=== PATIENT | female | born 1995 | race Caucasian/White ===

== ENCOUNTER 2019-12-10 11:50 | Emergency (ER) | payer SELFPAY ==
[~2019-12-10] VITALS: Ht 162.6 cm; Wt 63.5 kg
[2019-12-10 11:52] VITALS: BP 133/84; Ht 162.6 cm; Wt 63.5 kg
== END 2019-12-10 13:34 | disposition home or self-care (01) ==
LOC: ED 11:50
DX: B34.9 Viral infection, unspecified (principal); Z11.8 Encounter for screening for other infectious and parasitic diseases